=== PATIENT | female | born 1935 | race Caucasian/White ===

== ENCOUNTER 2019-08-31 10:15 | Outpatient (CLI) | payer MEDICARE | END 2019-08-31 23:59 | disposition home or self-care (01) | LOC: LAB 10:15 | PROVIDERS: ATTEND Internal Medicine Interventional Cardiology | DX: R59.1 Generalized enlarged lymph nodes (principal) | CPT/HCPCS: 36415; 80048-TC ==

== ENCOUNTER 2019-09-01 09:56 | Outpatient (CLI) | payer MEDICARE ==
[2019-08-31 10:50] LABS: CALCIUM, SERUM 9.3 mg/dL (8.5-10.1); POTASSIUM 4.4 mmol/L (3.5-5.1)
[2019-09-01] MEDS ORDERED: IOHEXOL-300 100 ML VIAL IV ONE (10:10)
[2019-09-01] MEDS ORDERED: IV NS 0.9% 250 ML IV ONE (10:11)
== END 2019-09-01 23:59 | disposition home or self-care (01) ==
LOC: RAD 09:56
PROVIDERS: ATTEND Internal Medicine Interventional Cardiology
DX: K44.9 Diaphragmatic hernia without obstruction or gangrene (principal); K57.30 Diverticulosis of large intestine without perforation or abscess without bleeding; I51.7 Cardiomegaly; I25.10 Atherosclerotic heart disease of native coronary artery without angina pectoris; I70.0 Atherosclerosis of aorta; R59.1 Generalized enlarged lymph nodes; M47.814 Spondylosis without myelopathy or radiculopathy, thoracic region
CPT/HCPCS: 36415; 71260; 80048; J7050; Q9967

== ENCOUNTER 2019-09-01 14:27 | Emergency (ER) | payer MEDICARE ==
[~2019-09-01] VITALS: Ht 167.6 cm; Wt 79.4 kg
--- NOTE | 2019-09-01 14:35 | NUR ---
sent by Dr. Mai to r/o [facility], had CT scan w/ contrast today and noted ground glass on the ct scan. Patient a/o4, breathing even and unlabored, no sob noted. Ambulatory with steady gait.
--- NOTE | 2019-09-01 15:10 | NUR ---
Covid swab done and sent to lab.
[2019-09-01 15:18] VITALS: BP 154/76
--- NOTE | 2019-09-01 15:18 | NUR ---
Patient discharged to home in stable condition. Written and verbal after care instructions given. Patient verbalizes understanding of instruction.
== END 2019-09-01 15:19 | disposition home or self-care (01) ==
LOC: ER 14:29
DX: R94.2 Abnormal results of pulmonary function studies (principal); Z20.828 Contact with and (suspected) exposure to other viral communicable diseases; K21.9 Gastro-esophageal reflux disease without esophagitis; K44.9 Diaphragmatic hernia without obstruction or gangrene
CPT/HCPCS: U0003 ×2

== ENCOUNTER 2020-09-06 10:22 | Outpatient (CLI) | payer MEDICARE, BC | END 2020-09-06 23:59 | disposition home or self-care (01) | LOC: RAD 10:22 | PROVIDERS: ATTEND Internal Medicine Interventional Cardiology | DX: I25.10 Atherosclerotic heart disease of native coronary artery without angina pectoris (principal); I70.0 Atherosclerosis of aorta; K44.9 Diaphragmatic hernia without obstruction or gangrene; M47.814 Spondylosis without myelopathy or radiculopathy, thoracic region; M19.011 Primary osteoarthritis, right shoulder; M19.012 Primary osteoarthritis, left shoulder; Z87.891 Personal history of nicotine dependence | CPT/HCPCS: 71250-TC ==